=== PATIENT | male | born 1995 | race African-American/Black ===

== ENCOUNTER 2018-05-20 16:02 | Emergency (ER) | payer OTHER ==
[~2018-05-20] VITALS: Ht 172.7 cm; Wt 90.7 kg
[~2018-05-20 16:02] MED LIST: KEFLEX500 MG PO
[2018-05-20 17:03] VITALS: BP 127/80
== END 2018-05-20 17:04 | disposition home or self-care (01) ==
LOC: M.ERS 16:02
DX: S61.216A Laceration without foreign body of right little finger without damage to nail, initial encounter (principal); W45.8XXA Other foreign body or object entering through skin, initial encounter; Y93.89 Activity, other specified; Y92.89 Other specified places as the place of occurrence of the external cause; Y99.8 Other external cause status

== ENCOUNTER 2018-05-30 15:11 | Emergency (ER) | payer OTHER ==
[~2018-05-30] VITALS: Ht 172.7 cm; Wt 90.7 kg
[2018-05-30 15:15] VITALS: BP 134/77
== END 2018-05-30 15:35 | disposition home or self-care (01) ==
LOC: M.ERS 15:11
DX: S61.216D Laceration without foreign body of right little finger without damage to nail, subsequent encounter (principal); X58.XXXD Exposure to other specified factors, subsequent encounter

== ENCOUNTER 2018-08-19 19:12 | Emergency (ER) | payer OTHER ==
[~2018-08-19] VITALS: Ht 172.7 cm; Wt 90.7 kg
[2018-08-19] MEDS ORDERED: NABUMETONE 750750 M1 PO (20:15)
[2018-08-19 20:28] VITALS: BP 134/80
== END 2018-08-19 20:31 | disposition home or self-care (01) ==
LOC: M.ERS 19:12
DX: S93.491A Sprain of other ligament of right ankle, initial encounter (principal); W00.2XXA Other fall from one level to another due to ice and snow, initial encounter; Y93.89 Activity, other specified; Y92.89 Other specified places as the place of occurrence of the external cause; Y99.8 Other external cause status

== ENCOUNTER 2020-01-17 17:37 | Emergency (ER) | payer OTHER ==
[~2020-01-17] VITALS: Ht 172.7 cm; Wt 95.3 kg
[~2020-01-17 17:37] MED LIST changes: +NABUMETONE 750750 M1 PO
[2020-01-17 17:46] VITALS: BP 119/78
[2020-01-17] MEDS ORDERED: AZITHROMYCIN 2250 MG PO (18:05)
[2020-01-17] MEDS ORDERED: TRIAMCINOLONE A15 G1 TP (18:05)
[2020-01-17] MEDS ORDERED: SUPRAX400 M1 PO (18:05)
== END 2020-01-17 18:10 | disposition home or self-care (01) ==
LOC: M.ERS 17:37
DX: L30.9 Dermatitis, unspecified (principal); Z20.2 Contact with and (suspected) exposure to infections with a predominantly sexual mode of transmission